=== PATIENT | male | born 1990 | race Caucasian/White ===

== ENCOUNTER 2017-10-03 18:23 | Emergency (ER) | payer SELFPAY ==
--- NOTE | 2017-10-03 19:16 | ER Document Report ---
ED Medical Screen (RME) - General Chief Complaint: Abdominal Pain Stated Complaint: ABDOMINAL PAIN Time Seen by Provider: 10/03/17 19:12 Notes: Patient says that he has had pain in the left abdomen for 1 week. It started in the left upper quadrant and has gone to the left lower quadrant, never on the right side of the abdomen. Pain comes and goes. No particular factors causing the pain or relieving. Has not had any nausea or vomiting. Did feel like he might be constipated in the middle of the weekend took some medication on Wednesday and had a good bowel movement on Wednesday followed by some loose stools, felt to be secondary to the laxative. Has some occasional mid substernal chest discomfort. Has a lot of heartburn. Patient has some leftover amoxicillin 500 mg at home and took that medication twice a day for 5 days but does not think it changed anything. Denies any UTI symptoms. Thinks he has had a fever, because he has felt very hot, and that sensation comes and goes. TRAVEL OUTSIDE OF THE [place] IN LAST 30 DAYS: No - Related Data Allergies/Adverse Reactions: No Known Allergies Allergy (Unverified 10/03/17 18:24) Past Medical History Past Surgical History: Reports: Hx Oral Surgery - Immunizations Immunizations up to date: No Hx Diphtheria, Pertussis, Tetanus Vaccination: No Physical Exam - Vital signs Vitals: Temp Pulse Resp BP Pulse Ox 98.6 F 84 17 150/70 H 99 10/03/17 18:27 10/03/17 18:27 10/03/17 18:27 10/03/17 18:27 10/03/17 18:27 Course - Vital Signs Vital signs: Temp Pulse Resp BP Pulse Ox 98.6 F 84 17 150/70 H 99 10/03/17 18:27 10/03/17 18:27 10/03/17 18:27 10/03/17 18:27 10/03/17 18:27
[2017-10-03 19:43] LABS: ABSOLUTE BASOPHILS # (AUTO) 0.1 10^3/uL (0.0-0.2); ABSOLUTE EOSINOPHILS # (AUTO) 0.2 10^3/uL (0.0-0.6); ABSOLUTE LYMPHOCYTES (AUTO) 3.6 10^3/uL (0.5-4.7); ABSOLUTE NEUT (AUTO) 7.7 10^3/uL (1.7-8.2); BASOPHILS % (AUTO) 0.5 % (0-2); EOSINOPHILS % (AUTO) 1.7 % (0-6); HEMATOCRIT 48.3 % (37.9-51.0); HEMOGLOBIN 16.8 g/dL (13.5-17.0); LYMPHOCYTES % (AUTO) 28.5 % (13-45); MEAN CORPUSCULAR HEMOGLOBIN 29.7 pg (27.0-33.4); MEAN CORPUSCULAR HGB CONC 34.8 g/dL (32.0-36.0); MEAN CORPUSCULAR VOLUME 85 fl (80-97); PLATELET COUNT 235 10^3/uL (150-450); RED BLOOD COUNT 5.66 10^6/uL (4.35-5.55); RED CELL DISTRIBUTION WIDTH 12.9 % (11.5-14.0); SEGMENTED NEUTROPHILS % (AUTO) 61.3 % (42-78); TOTAL CELLS COUNTED % (AUTO) 100 %; WHITE BLOOD COUNT 12.5 10^3/uL (4.0-10.5)
[2017-10-03 19:52] LABS: APPEARANCE,URINE CLEAR; BILIRUBIN,URINE NEGATIVE (NEGATIVE); COLOR,URINE STRAW; GLUCOSE, URINE NEGATIVE (NEGATIVE); KETONES,URINE NEGATIVE (NEGATIVE); LEUKOCYTE ESTERASE,URINE NEGATIVE (NEGATIVE); NITRITE,URINE NEGATIVE (NEGATIVE); PROTEIN,URINE NEGATIVE (NEGATIVE); URINE SPECIFIC GRAVITY 1.009; UROBILINOGEN,URINE NEGATIVE mg/dL (<2.0)
[2017-10-03 19:54] LABS: ALANINE AMINOTRANSFERASE 105 U/L (21-72); ALBUMIN 5.1 g/dL (3.5-5.0); ALKALINE PHOSPHATASE 73 U/L (38-126); ANION GAP 14 (5-19); ASPARTATE AMINO TRANSFERASE 49 U/L (17-59); BILIRUBIN,DIRECT 0.4 mg/dL (0.0-0.4); BILIRUBIN,TOTAL 0.6 mg/dL (0.2-1.3); BLOOD UREA NITROGEN 11 mg/dL (7-20); CALCIUM 10.3 mg/dL (8.4-10.2); CARBON DIOXIDE 26 mmol/L (22-30); CHLORIDE 104 mmol/L (98-107); GLUCOSE 95 mg/dL (75-110); LIPASE 68.9 U/L (23-300); POTASSIUM 4.1 mmol/L (3.6-5.0); SODIUM 144.2 mmol/L (137-145); TOTAL PROTEIN 8.5 g/dL (6.3-8.2)
[2017-10-03] MEDS ORDERED: IBUPROFEN 600 MG TABLET PO ONE (20:25)
[2017-10-03] MEDS ORDERED: LIDOCAINE 5% (700 MG) TRANSDERMAL ADH..PATCH TP ONE (20:25)
[2017-10-03 20:43] VITALS: BP 149/88
--- NOTE | 2017-10-03 20:46 | ER Document Report ---
ED General - General Chief Complaint: Abdominal Pain Stated Complaint: ABDOMINAL PAIN Time Seen by Provider: 10/03/17 19:12 Notes: Patient is a 27-year-old male without past medical history, no prior surgical history who presents with 3-4 days of left-sided lower rib and upper abdominal pain. Patient does describe this as an aching, throbbing, constant pain worsened by movement and coughing. 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 He has not tried anything for relief of the pain stating that he is "afraid of pills". He denies any history of similar symptoms in the past. He denies any shortness of breath, hemoptysis, unilateral leg swelling, syncope, or pain radiating to the arms, jaw or back. He has not seen his primary doctor regarding today's concerns. Nothing is new or different about her symptoms today that prompted a visit to the emergency department. TRAVEL OUTSIDE OF THE [place] IN LAST 30 DAYS: No - Related Data Allergies/Adverse Reactions: No Known Allergies Allergy (Unverified 10/03/17 18:24) Past Medical History - General Information source: Patient - Social History Smoking Status: Never Smoker Frequency of alcohol use: None Drug Abuse: Marijuana Lives with: Spouse/Significant other Family History: Reviewed & Not Pertinent Patient has suicidal ideation: No Patient has homicidal ideation: No Renal/ Medical History: Denies: Hx Peritoneal Dialysis Past Surgical History: Reports: Hx Oral Surgery - Immunizations Immunizations up to date: No Hx Diphtheria, Pertussis, Tetanus Vaccination: No Review of Systems - Review of Systems Notes: Constitutional: Negative for fever. HENT: Negative for sore throat. Eyes: Negative for visual changes. Cardiovascular: Negative for chest pain. Respiratory: Negative for shortness of breath. Gastrointestinal: Positive for abdominal pain Genitourinary: Negative for dysuria. Musculoskeletal: Negative for back pain. Skin: Negative for rash. Neurological: Negative for headaches, weakness or numbness. 10 point ROS negative except as marked above and in HPI. Physical Exam - Vital signs Vitals: Temp Pulse Resp BP Pulse Ox 98.6 F 84 17 150/70 H 99 10/03/17 18:27 10/03/17 18:27 10/03/17 18:27 10/03/17 18:27 10/03/17 18:27 Interpretation: Hypertensive Notes: PHYSICAL EXAMINATION: GENERAL: Well-appearing, well-nourished and in no acute distress. HEAD: Atraumatic, normocephalic. EYES: Pupils equal round and reactive to light, extraocular movements intact, sclera anicteric, conjunctiva are normal. ENT: nares patent, oropharynx clear without exudates. Moist mucous membranes. NECK: Normal range of motion, supple without lymphadenopathy LUNGS: Breath sounds clear to auscultation bilaterally and equal. No wheezes rales or rhonchi. HEART: Regular rate and rhythm without murmurs Chest wall. Pain on palpation of the left lower ribs as well as the left flank ABDOMEN: Soft, nontender, normoactive bowel sounds. No guarding, no rebound. No masses appreciated. EXTREMITIES: Normal range of motion, no pitting or edema. No cyanosis. NEUROLOGICAL: No focal neurological deficits. Moves all extremities spontaneously and on command. PSYCH: Normal mood, normal affect. SKIN: Warm, Dry, normal turgor, no rashes or lesions noted. Course - Re-evaluation Re-evalutation: 10/03/17 20:44 Patient presents with signs and symptoms most consistent with a musculoskeletal strain along the left lower ribs and oblique muscle wall on the left side. Pain is reproduced with movement and palpation of the area. The patient has no focal abdominal tenderness on examination to suspect an acute biliary pathology , keep pink otitis, acute appendicitis, mesenteric ischemia, bowel obstruction, or bowel perforation. His vitals are within normal limits. He is very well in appearance. Vitals do not suggest an acute pulmonary embolus. He is PERC criteria negative. Will treat with anti-inflammatories, topical lidocaine and I recommend close outpatient follow-up. At this time will discharge with return precautions and follow-up recommendations. Verbal discharge instructions given a the bedside and opportunity for questions given. Medication warnings reviewed. Patient is in agreement with this plan and has verbalized understanding of return precautions and the need for primary care follow-up in the next 24-72 hours. - Vital Signs Vital signs: Temp Pulse Resp BP Pulse Ox 98.6 F 65 20 149/88 H 98 10/03/17 18:27 10/03/17 20:37 10/03/17 20:37 10/03/17 20:37 03/04/18 20:37 - Laboratory Result Diagrams: 10/03/17 19:25 10/03/17 19:25 Laboratory results interpreted by me: 10/03/17 10/03/17 19:25 19:25 WBC 12.5 H RBC 5.66 H Calcium 10.3 H ALT 105 H Total Protein 8.5 H Albumin 5.1 H Discharge - Discharge Clinical Impression: Chest wall pain, Abdominal wall pain Condition: Good Disposition: HOME, SELF-CARE Additional Instructions: For your pain: Take ibuprofen 600 mg and acetaminophen 1000 mg every 6 hours together as needed for pain. Apply heat to the affected area. He may also use topical lidocaine. Your labs are within normal limits today. Return to the emergency department if you have persistent vomiting, fever, pass out, become short of breath, or have any other symptoms that are worrisome to you.
== END 2017-10-03 20:50 | disposition home or self-care (01) ==
LOC: ER 18:23
DX: R07.89 Other chest pain (principal); R10.9 Unspecified abdominal pain
CPT/HCPCS: 36415; 80053; 81001; 83690; 85025; 99284